=== PATIENT | male | born 1965 | race Caucasian/White ===

== ENCOUNTER 2018-10-24 11:14 | Emergency (ER) | payer BC ==
[2018-10-24 11:25] LABS: BASOPHILS % (AUTO) 0.4 % (0.0-5.0); EOSINOPHILS % (AUTO) 1.8 % (0.0-8.0); HEMATOCRIT 49.6 % (42-54); LYMPHOCYTES % (AUTO) 21.4 % (21.0-51.0); MEAN CORPUSCULAR HEMOGLOBIN 31.6 pg (27.0-33.0); MEAN CORPUSCULAR HGB CONC 34.2 g/dL (32.0-36.0); MEAN CORPUSCULAR VOLUME 92.4 fL (79-99); MONOCYTES % (AUTO) 7.6 % (3.0-13.0); NEUTROPHILS % (AUTO) 68.8 % (40.0-77.0); NUCLEATED RED BLOOD CELLS 0.1 % (0.0-0.19); PLATELET COUNT (AUTO) 212 K/uL (130-400); RED BLOOD CELL COUNT(AUTO) 5.37 MIL/uL (4.50-6.20); RED CELL DISTRIBUTION WIDTH 13.2 % (11.0-15.5); WHITE BLOOD COUNT (AUTO) 10.4 K/uL (4.8-10.8)
[2018-10-24 11:32] LABS: CREATININE 0.8 mg/dL (0.5-1.5); POTASSIUM 3.8 mmol/L (3.5-5.1)
[2018-10-24] MEDS ORDERED: SODIUM CHLORIDE 0.9% 1000ML 1,000 ML IV ONE (11:36)
[2018-10-24] MEDS ORDERED: ONDANSETRON HCL 4 MG/2 ML VIAL ONE (11:36)
[2018-10-24] MEDS ORDERED: MORPHINE SULFATE 4 MG/1ML SYG ONE (11:36)
[2018-10-24] MEDS ORDERED: IOHEXOL-350 50ML VIAL IV ONE ×2 (11:41→11:57)
[2018-10-24 11:45] LABS: ALBUMIN 3.9 g/dL (3.5-5.0); BILIRUBIN,DIRECT 0.1 mg/dL (0.0-0.3); BILIRUBIN,TOTAL 0.4 mg/dL (0.2-1.0); TOTAL PROTEIN, SERUM 8.5 g/dL (6.0-8.3)
[2018-10-24 13:40] LABS: APPEARANCE,URINE Clear (CLEAR); BILIRUBIN,URINE Negative (NEGATIVE); COLOR,URINE Yellow (YELLOW); GLUCOSE, URINE (UA) Negative (NEGATIVE); KETONES,URINE Trace mg/dL (NEGATIVE); LEUKOCYTE ESTERASE ,URINE Negative (NEGATIVE); NITRATE,URINE Negative (NEGATIVE); OCCULT BLOOD,URINE Negative (NEGATIVE); PH,URINE 7.5 (5.0-8.0); PROTEIN,URINE Negative (NEGATIVE)
[2018-10-24] MEDS ORDERED: KETOROLAC TROMETHAMINE 30MG/ML ONE (14:03)
[2018-10-24] MEDS ORDERED: DIAZEPAM 5 MG TABLET ONE (14:04)
[2018-10-24 14:06] LABS: BACTERIA,URINE Rare /HPF (None Seen); RBC,URINE 0-1 /HPF (0-1); WBC,URINE None Seen /HPF (0-1)
[2018-10-24 14:07] LABS: SQUAMOUS EPITHELIAL CELL,UR None Seen /HPF (0-2)
[2018-10-24] MEDS ORDERED: DIAZEPAM 2 MG TAB ONE (15:22)
== END 2018-10-24 15:26 | disposition home or self-care (01) ==
LOC: EDH 11:14
DX: R10.32 Left lower quadrant pain (principal); I25.10 Atherosclerotic heart disease of native coronary artery without angina pectoris; Z98.890 Other specified postprocedural states; Z72.0 Tobacco use
CPT/HCPCS: 36415; 74177; 80048; 80076; 81001; 83690; 84484; 85025; 93005; 96374; 96375; 99285; J1885; J2270; J2405; J7030; Q9967

== ENCOUNTER 2018-10-26 08:09 | Observation (INO) | payer BC ==
[~2018-10-26] VITALS: Ht 177.8 cm; Wt 99.3 kg
[2018-10-26] MEDS ORDERED: HYDROMORPHONE 1 MG/1 ML AMP ONE (08:46)
[2018-10-26] MEDS ORDERED: KETOROLAC TROMETHAMINE 30MG/ML ONE (08:46)
[2018-10-26 09:14] LABS: BASOPHILS % (AUTO) 0.5 % (0.0-5.0); EOSINOPHILS % (AUTO) 3.6 % (0.0-8.0); HEMATOCRIT 48.5 % (42-54); LYMPHOCYTES % (AUTO) 18.6 % (21.0-51.0); MEAN CORPUSCULAR HEMOGLOBIN 31.7 pg (27.0-33.0); MEAN CORPUSCULAR HGB CONC 33.9 g/dL (32.0-36.0); MEAN CORPUSCULAR VOLUME 93.3 fL (79-99); MONOCYTES % (AUTO) 9.1 % (3.0-13.0); NEUTROPHILS % (AUTO) 68.2 % (40.0-77.0); NUCLEATED RED BLOOD CELLS 0.2 % (0.0-0.19); PLATELET COUNT (AUTO) 192 K/uL (130-400); RED CELL DISTRIBUTION WIDTH 13.3 % (11.0-15.5); WHITE BLOOD COUNT (AUTO) 8.6 K/uL (4.8-10.8)
[2018-10-26 09:27] LABS: INR 0.94 (0.85-1.15); PARTIAL THROMBOPLASTIN TIME 25.6 SEC (26.3-35.5); PROTHROMBIN TIME 9.9 SEC (9.6-11.6)
[2018-10-26 09:33] LABS: CARBON DIOXIDE 30 mmol/L (21-32); CHLORIDE 107 mmol/L (101-111); CREATININE 0.9 mg/dL (0.5-1.5); GLOMERULAR FILTR. RATE CALC 93 mL/min (>60); GLUCOSE,RANDOM 119 mg/dL (70-105); POTASSIUM 3.7 mmol/L (3.5-5.1); SODIUM SERUM 144 mmol/L (136-145); UREA NITROGEN, BLOOD 4 mg/dL (7-18)
[2018-10-26 09:39] LABS: ALANINE AMINOTRANSFERASE 42 U/L (12-78); ALBUMIN 3.7 g/dL (3.5-5.0); ASPARTATE AMINOTRANSFERASE 25 U/L (10-37); BILIRUBIN,TOTAL 0.4 mg/dL (0.2-1.0); TOTAL PROTEIN, SERUM 7.2 g/dL (6.0-8.3)
[2018-10-26 09:44] LABS: CRP QUANTITATIVE < 2.00 mg/L (0.00-9.0)
[2018-10-26 10:33] LABS: ERYTHROCYTE SEDIMENTATION RATE 4 MM/HR (0-20)
[2018-10-26] MEDS ORDERED: LACTULOSE 20 GM/30 ML UDCUP PO PRN (11:15)
[2018-10-26] MEDS ORDERED: MORPHINE SULFATE 2 MG/ML 1ML SYG IV PRN (11:15)
[2018-10-26] MEDS ORDERED: HYDRALAZINE HCL 20 MG/ML VIAL IV PRN (11:15)
[2018-10-26] MEDS ORDERED: ACETAMINOPHEN 325 MG TAB PO PRN ×2 (11:15)
[2018-10-26] MEDS: LIDOCAINE 5% TOPICAL PATCH TP SCH (11:15)
[2018-10-26] MEDS ORDERED: ONDANSETRON HCL 4 MG/2 ML VIAL IV PRN (11:15)
[2018-10-26] MEDS ORDERED: BACLOFEN 10 MG TABLET PO ONE (12:48)
[2018-10-26] MEDS ORDERED: DEXAMETHASONE SOD PHOSPHATE 4 MG/ML 1ML VIAL ONE ×2 (12:48→12:55)
[2018-10-26] MEDS ORDERED: LIDOCAINE 5% TOPICAL PATCH TP ONE (12:49)
[2018-10-26] MEDS ORDERED: SODIUM CHLORIDE 0.9% 1000ML 1,000 ML IV ONE (12:56)
[2018-10-26] MEDS: DEXAMETHASONE SOD PHOSPHATE 4 MG/ML 1ML VIAL IVP SCH ×2 (14:00→20:23)
[2018-10-26] MEDS: BACLOFEN 10 MG TABLET PO SCH ×2 (14:00→20:23)
[2018-10-26 17:55] VITALS: BP 136/78
[2018-10-26] MEDS: SODIUM CHLORIDE 0.9% 1000ML 1,000 ML IV SCH ×2 (18:08→20:13)
[2018-10-26] MEDS ORDERED: ROSU40TA21 PO (18:19)
[2018-10-26] MEDS ORDERED: OMEG-148 PO (18:19)
[2018-10-26] MEDS ORDERED: OLME40TA18 PO (18:19)
[2018-10-26] MEDS ORDERED: MULT-1289 PO (18:19)
[2018-10-26] MEDS ORDERED: ASPI-555 PO (18:19)
[2018-10-26 20:07] VITALS: BP 124/73
[2018-10-26] MEDS: PREGABALIN 75 MG CAPSULE PO SCH (20:23)
[2018-10-26] MEDS: FAMOTIDINE/PF 20 MG/2 ML VIAL IV SCH (20:24)
[2018-10-26 23:20] VITALS: BP 129/73
[2018-10-27 03:59] VITALS: BP 129/78
[2018-10-27] MEDS: SODIUM CHLORIDE 0.9% 1000ML 1,000 ML IV SCH (06:42)
[2018-10-27 07:15] VITALS: BP 139/86
[2018-10-27] MEDS ORDERED: ENOXAPARIN SODIUM 40 MG/0.4 ML SYRINGE SQ SCH (09:00)
[2018-10-27] MEDS: BACLOFEN 10 MG TABLET PO SCH ×2 (09:20→15:48)
[2018-10-27] MEDS: DEXAMETHASONE SOD PHOSPHATE 4 MG/ML 1ML VIAL IVP SCH ×2 (09:20→15:48)
[2018-10-27] MEDS: FAMOTIDINE/PF 20 MG/2 ML VIAL IV SCH (09:20)
[2018-10-27] MEDS: LIDOCAINE 5% TOPICAL PATCH TP SCH (09:21)
[2018-10-27] MEDS: PREGABALIN 75 MG CAPSULE PO SCH (09:21)
--- NOTE | 2018-10-27 09:46 | NUR ---
MRI OF LUMBAR; SPOKE WITH STATES CHACHO AT 10:30AM. WILL BE DONE.
[2018-10-27 11:00] VITALS: BP 136/77
--- NOTE | 2018-10-27 12:13 | NUR ---
DCP CM met with pt discussed dc plans. Pt is independent prior to admission, lives at home with spouse. Denies any equipments/services. Pt feels safe to go back home, still works and drives, spouse able to assist with transportation and needs as necessary. DC plan to home once stable. CM to cont to follow up. Addendum: 10/27/18 at 1214 by DAGMAR MEANS LVN CM Amended: Links added.
--- NOTE | 2018-10-27 13:01 | NUR ---
DR. GALLAGHER CALLED; ORDERS RECEIVED. FOR NEUROSX AND ID. CONSULT.
--- NOTE | 2018-10-27 13:02 | NUR ---
NEGRA FROM NEUROSURGERY AWARE OF CONSULT; NARROWING VS OSTEO OF L4-L5 STATES WILL CONVEY MESSAGE TO DR. HASSAN.
--- NOTE | 2018-10-27 13:02 | NUR ---
DR MCKEON AWARE OF CONSUTL FOR L4-L5 NARROWING VS OSTEOMYELITIS.
--- NOTE | 2018-10-27 14:05 | NUR ---
DR HASSAN HERE WITH PATIENT; RECOMMENDATIONS WRITTEN IN NOTES
--- NOTE | 2018-10-27 15:45 | NUR ---
DR GALLAGHER AWARE OF NEUROSURGEON RECOMMENDATIONS; ENTERING ORDERS.
--- NOTE | 2018-10-27 15:46 | NUR ---
DR. GALLAGHER STATES HE WILL CANCEL ID CONSULT.
--- NOTE | 2018-10-27 17:11 | NUR ---
PATIENT DISCHARGED HOME USING TEACH BACK TECHNIQUE RE; FOLLOW UP WITH YOUR PRIMARY DOCTOR IN 1 WEEK FOR TRANSITION OF CARE VISIT. FOLLOW UP WITH DR. HASSAN IN 1-2 WEEKS CALL TO SET UP AN APPOINTMENT AT PHONE [phone], ADDRESS; [address] [place] [address]. CALL 911 YOU SUFFER FROM A FALL AND UNABLE TO WALK OR GET UP. PRESCRIPTION GIVEN TO YOU AT DISCHARGE FROM HOSPITAL FOR ANTI-INFLAMMATORY AND PAIN MANAGEMENT.
== END 2018-10-27 17:20 | disposition home or self-care (01) ==
LOC: EDH 08:09 → EDHIP 11:15 → 3DH 17:32
PROVIDERS: ADMIT Internal Medicine; ATTEND Internal Medicine
DX: M54.9 Dorsalgia, unspecified (principal); I10 Essential (primary) hypertension; I25.10 Atherosclerotic heart disease of native coronary artery without angina pectoris; F17.290 Nicotine dependence, other tobacco product, uncomplicated; Z95.5 Presence of coronary angioplasty implant and graft; Z79.01 Long term (current) use of anticoagulants; Z79.899 Other long term (current) drug therapy
CPT/HCPCS: 36415; 72148; 80053; 85025; 85610; 85651; 85730; 86140; 96372; 96374; 96375; 96376; 99283; G0378 ×28; J1100 ×5; J1170; J1885; J3490 ×2; J7030; J1650